=== PATIENT | female | born 1955 | race African-American/Black ===

== ENCOUNTER 2024-09-27 17:19 | Emergency (ER) | payer MEDICARE | END 2024-09-27 18:09 | disposition home or self-care (01) | LOC: JP.ED 17:19 | DX: M25.562 Pain in left knee (principal); I10 Essential (primary) hypertension; E78.00 Pure hypercholesterolemia, unspecified; Z90.710 Acquired absence of both cervix and uterus; Z79.899 Other long term (current) drug therapy; Z88.8 Allergy status to other drugs, medicaments and biological substances; Z88.5 Allergy status to narcotic agent | CPT/HCPCS: 93971-LT; 99283 ==